=== PATIENT | female | born 1980 | race Two or more races ===

== ENCOUNTER → 2018-01-12 | Outpatient (CLI) | payer BC ==
[2018-01-12 14:37] LABS: Alanine Aminotransferase 37 U/L (13-56); Albumin 3.6 g/dL (3.4-5.0); Alkaline Phosphatase 86 U/L (45-117); Aspartate Aminotransferase 19 U/L (15-37); Bilirubin, Direct < 0.1 mg/dL (0-0.2); Bilirubin, Total 0.2 mg/dL (0.2-1.0); Total Protein 6.9 g/dL (6.4-8.2)
== END | disposition home or self-care (01) ==
LOC: LAB 08:04
DX: Z00.01 Encounter for general adult medical examination with abnormal findings (principal); R76.11 Nonspecific reaction to tuberculin skin test without active tuberculosis; B35.1 Tinea unguium; Z97.5 Presence of (intrauterine) contraceptive device
CPT/HCPCS: 36415; 80076